=== PATIENT | female | born 1940 | race African-American/Black ===

== ENCOUNTER → 2022-02-12 | Day surgery (SDC) | payer MEDICARE ==
[2022-02-08 09:44] LABS: BASOPHILS % 1.1 % (0.0-1.0); EOSINOPHILS # (AUTO) 0.1 (0.0-0.4); EOSINOPHILS % 2.7 % (0.0-6.0); HEMATOCRIT 34.9 % (34.2-44.1); HEMOGLOBIN 10.9 g/dL (12.0-16.0); LYMPHOCYTES # (AUTO) 0.6 (1.0-3.2); LYMPHOCYTES % 34.6 % (18.0-39.1); MEAN CORPUSCULAR HEMOGLOBIN 31.6 pg (28-32); MEAN CORPUSCULAR HGB CONC 31.2 g/dL (31-35); MEAN CORPUSCULAR VOLUME 101.2 fL (81-99); MONOCYTES # (AUTO) 0.4 (0.2-0.8); MONOCYTES % 21.4 % (4.4-11.3); NEUTROPHILS # (AUTO) 0.7 (2.1-6.9); NEUTROPHILS % 40.2 % (38.7-80.0); PLATELET COUNT 115 x10e3/uL (140-360); RED BLOOD COUNT 3.45 x10e6/uL (3.6-5.1); RED CELL DISTRIBUTION WIDTH 11.8 % (11.7-14.4)
[2022-02-08 10:43] LABS: EOSINOPHILS % (MANUAL) 4 % (0-7); LYMPHOCYTES % (MANUAL) 36 % (19-48); MONOCYTES % (MANUAL) 22 % (3.4-9.0); NEUTROPHILS % (MANUAL) 38 % (40-74)
[2022-02-08 10:47] LABS: PLATELET ESTIMATE SLIGHTLY DECREASED; PLATELET MORPHOLOGY COMMENT NORMAL; RBC MORPHOLOGY COMMENT NORMAL
[~2022-02-12] MED LIST: AMITRIPTYLINE H10 MG PO; CARVEDILOL12.5 MG PO; ELIQUIS5 MG PO; ENTRESTO 24 MG1 EACH PO; FAMOTIDINE20 MG PO; FENTANYL CITRATE/PF 100MCG/2 ML INJ ONE; FLONASE ALLERG9.9 ML INH; HYOSCYAMINE SULFATE 0.5 MG/ML INJ ONE; MAGNESIUM OXID400 MG PO; PROPOFOL IV EMULSION 10 MG/ML 20 ML VIAL ONE
[2022-02-12 12:25] VITALS: BP 144/84
== END | disposition home or self-care (01) ==
LOC: OR 08:16 → EDBD 10:00
PROVIDERS: ATTEND Internal Medicine Gastroenterology
DX: K29.70 Gastritis, unspecified, without bleeding (principal); K31.7 Polyp of stomach and duodenum; D12.2 Benign neoplasm of ascending colon; K57.30 Diverticulosis of large intestine without perforation or abscess without bleeding; K21.9 Gastro-esophageal reflux disease without esophagitis; K59.09 Other constipation; I11.0 Hypertensive heart disease with heart failure; I50.9 Heart failure, unspecified; Z86.010 Personal history of colon polyps; Z01.810 Encounter for preprocedural cardiovascular examination; Z01.812 Encounter for preprocedural laboratory examination; Z20.822 Contact with and (suspected) exposure to COVID-19; Z95.810 Presence of automatic (implantable) cardiac defibrillator; Z86.718 Personal history of other venous thrombosis and embolism
CPT/HCPCS: 0223U; 36415; 43239; 45380; 45385; 85025; C9113; J1980; J2704; J3010; 45378; 45384

== ENCOUNTER → 2022-08-27 | Day surgery (SDC) | payer MEDICARE ==
[2022-08-22 11:21] LABS: BASOPHILS % 0.5 % (0.0-1.0); EOSINOPHILS # (AUTO) 0.1 (0.0-0.4); EOSINOPHILS % 2.7 % (0.0-6.0); HEMATOCRIT 34.1 % (34.2-44.1); HEMOGLOBIN 10.3 g/dL (12.0-16.0); LYMPHOCYTES # (AUTO) 0.8 (1.0-3.2); LYMPHOCYTES % 41.3 % (18.0-39.1); MEAN CORPUSCULAR HEMOGLOBIN 30.6 pg (28-32); MEAN CORPUSCULAR HGB CONC 30.2 g/dL (31-35); MEAN CORPUSCULAR VOLUME 101.2 fL (81-99); MONOCYTES # (AUTO) 0.6 (0.2-0.8); MONOCYTES % 30.4 % (4.4-11.3); NEUTROPHILS # (AUTO) 0.5 (2.1-6.9); NEUTROPHILS % 24.6 % (38.7-80.0); PLATELET COUNT 72 x10e3/uL (140-360); RED BLOOD COUNT 3.37 x10e6/uL (3.6-5.1); RED CELL DISTRIBUTION WIDTH 12.7 % (11.7-14.4)
[2022-08-22 12:59] LABS: EOSINOPHILS % (MANUAL) 3 % (0-7); LYMPHOCYTES % (MANUAL) 46 % (19-48); MONOCYTES % (MANUAL) 15 % (3.4-9.0); MYELOCYTES % (MANUAL) 2 % (0-0); NEUTROPHILS % (MANUAL) 33 % (40-74); PLATELET ESTIMATE MODERATELY DECREASED
[2022-08-22 13:00] LABS: PLATELET MORPHOLOGY COMMENT NORMAL; RBC MORPHOLOGY COMMENT NORMAL
[~2022-08-27] MED LIST changes: +FUROSEMIDE40 MG PO; -HYOSCYAMINE SULFATE 0.5 MG/ML INJ ONE; +LIDOCAINE HCL 2% LOCAL INJ 5 ML SDV VIAL INJ ONE; +PROTONIX20 MG PO
[2022-08-27 15:50] VITALS: BP 122/62
== END | disposition home or self-care (01) ==
LOC: OR 10:14
PROVIDERS: ATTEND Internal Medicine Gastroenterology
DX: K50.90 Crohn's disease, unspecified, without complications (principal); K63.5 Polyp of colon; K29.50 Unspecified chronic gastritis without bleeding; K63.89 Other specified diseases of intestine; K59.00 Constipation, unspecified; K21.9 Gastro-esophageal reflux disease without esophagitis; K76.89 Other specified diseases of liver; E11.9 Type 2 diabetes mellitus without complications; I25.10 Atherosclerotic heart disease of native coronary artery without angina pectoris; I11.0 Hypertensive heart disease with heart failure; I50.9 Heart failure, unspecified; Z88.0 Allergy status to penicillin; Z01.812 Encounter for preprocedural laboratory examination; Z79.02 Long term (current) use of antithrombotics/antiplatelets; Z79.899 Other long term (current) drug therapy; Z95.810 Presence of automatic (implantable) cardiac defibrillator
CPT/HCPCS: 36415; 43239; 45380; 85025; C9113; J2001; J2704; J3010; 45378

== ENCOUNTER 2022-10-15 03:39 | Inpatient (IN) | payer MEDICARE, OTHER ==
[~2022-10-15] VITALS: Ht 152.4 cm; Wt 55.3 kg
[2022-10-15] VITALS (7 sets, daily range): BP systolic 140–160; BP diastolic 75–76
[~2022-10-15 03:39] MED LIST changes: -FENTANYL CITRATE/PF 100MCG/2 ML INJ ONE; -LIDOCAINE HCL 2% LOCAL INJ 5 ML SDV VIAL INJ ONE; -PROPOFOL IV EMULSION 10 MG/ML 20 ML VIAL ONE
[2022-10-15] MEDS ORDERED: SODIUM CHLORIDE 0.9% 1000ML 1,000 ML IV ONE (04:30)
[2022-10-15 04:53] LABS: BASOPHILS % 0.7 % (0.0-1.0); EOSINOPHILS # (AUTO) 0.1 (0.0-0.4); EOSINOPHILS % 4.6 % (0.0-6.0); HEMATOCRIT 36.2 % (34.2-44.1); HEMOGLOBIN 11.7 g/dL (12.0-16.0); LYMPHOCYTES # (AUTO) 0.6 (1.0-3.2); LYMPHOCYTES % 39.9 % (18.0-39.1); MEAN CORPUSCULAR HEMOGLOBIN 30.8 pg (28-32); MEAN CORPUSCULAR HGB CONC 32.3 g/dL (31-35); MEAN CORPUSCULAR VOLUME 95.3 fL (81-99); MONOCYTES # (AUTO) 0.4 (0.2-0.8); MONOCYTES % 25.5 % (4.4-11.3); NEUTROPHILS # (AUTO) 0.4 (2.1-6.9); NEUTROPHILS % 28.6 % (38.7-80.0); PLATELET COUNT 80 x10e3/uL (140-360)
[2022-10-15 05:08] LABS: CLARITY,URINE CLEAR (CLEAR); COLOR,URINE YELLOW (YELLOW); KETONES,URINE NEGATIVE (NEGATIVE); LEUKOCYTE ESTERASE ,URINE 1+ (NEGATIVE); NITRITE,URINE POSITIVE (NEGATIVE); PROTEIN,URINE DIPSTICK NEGATIVE (NEGATIVE); URINE UROBILINOGEN 0.2 mg/dL (0.2 - 1)
[2022-10-15 05:10] LABS: ANION GAP 15.1 mmol/L (8-16); CREATININE, SERUM 1.2 mg/dL (0.57-1.11); POTASSIUM 4.1 mmol/L (3.5-5.1)
[2022-10-15 05:14] LABS: BACTERIA,URINE MANY /HPF; EPITHELIAL CELLS,URINE FEW /LPF; RENAL EPITHELIAL CELLS,URINE RARE; TRANSITIONAL EPI CELLS,URINE FEW; WBC,URINE (MAN) 21-50 /HPF (0-5)
[2022-10-15] MEDS ORDERED: CEFTRIAXONE 1 GM VIAL IV ONE (05:30)
[2022-10-15] MEDS ORDERED: CEFTRIAXONE 1 GM VIAL ONE (05:35)
[2022-10-15] MEDS ORDERED: ONDANSETRON HCL INJ 2MG/ML 2ML 2 MG/ML VIAL IV PRN (05:45)
[2022-10-15] MEDS ORDERED: SODIUM CHLORIDE FLUSH 10 ML SYR INJ PRN (05:45)
[2022-10-15] MEDS ORDERED: PANTOPRAZOLE SO40 MG PO (08:24)
[2022-10-15] MEDS ORDERED: MECLIZINE HCL12.5 MG PO (08:24)
[2022-10-15] MEDS ORDERED: ESIDRIX25 MG PO (08:24)
[2022-10-15] MEDS ORDERED: CARVEDILOL 12.5 MG TAB PO SCH (09:00)
[2022-10-15] MEDS ORDERED: AMITRIPTYLINE HCL 10 MG TAB PO SCH (09:00)
[2022-10-15] MEDS ORDERED: HYDRALAZINE HCL 20 MG/ML VIAL IV PRN (09:00)
[2022-10-15] MEDS ORDERED: APIXABAN 5 MG TABLET PO SCH (09:00)
[2022-10-15] MEDS ORDERED: SODIUM CHLORIDE 0.9% 250ML 250 ML ONE (10:26)
[2022-10-15] MEDS: MECLIZINE HCL 12.5 MG TAB PO SCH ×3 (11:02→20:45)
[2022-10-15] MEDS: PANTOPRAZOLE SOD 40 MG TABEC PO SCH (11:02)
[2022-10-15] MEDS: NIFEDIPINE CR 30 MG TAB PO SCH (11:03)
[2022-10-15] MEDS ORDERED: PHENYLEPH/SHARK OIL/MO/PETROL 30 GM OINT RC PRN (20:45)
[2022-10-15] MEDS: APIXABAN 5 MG TABLET PO SCH (20:46)
[2022-10-15] MEDS: AMITRIPTYLINE HCL 10 MG TAB PO SCH (20:46)
[2022-10-15] MEDS: CARVEDILOL 12.5 MG TAB PO SCH (20:48)
[2022-10-15] MEDS: HYDROXYZINE HCL 25 MG TAB PO PRN (22:52)
[2022-10-16] VITALS (7 sets, daily range): BP systolic 100–151; BP diastolic 64–80
[2022-10-16] MEDS ORDERED: PHE/SHARK LIVER OIL/COCOA BUT 1 EA SUPP RC PRN ×2 (00:45→11:45)
[2022-10-16 06:00] LABS: BASOPHILS % 0.7 % (0.0-1.0); EOSINOPHILS # (AUTO) 0.1 (0.0-0.4); HEMATOCRIT 36.1 % (34.2-44.1); HEMOGLOBIN 11.5 g/dL (12.0-16.0); LYMPHOCYTES # (AUTO) 0.5 (1.0-3.2); LYMPHOCYTES % 35.1 % (18.0-39.1); MEAN CORPUSCULAR HEMOGLOBIN 30.6 pg (28-32); MEAN CORPUSCULAR HGB CONC 31.9 g/dL (31-35); MONOCYTES # (AUTO) 0.3 (0.2-0.8); MONOCYTES % 18.5 % (4.4-11.3); NEUTROPHILS # (AUTO) 0.6 (2.1-6.9); NEUTROPHILS % 41.7 % (38.7-80.0); PLATELET COUNT 97 x10e3/uL (140-360); RED BLOOD COUNT 3.76 x10e6/uL (3.6-5.1); RED CELL DISTRIBUTION WIDTH 11.9 % (11.7-14.4)
[2022-10-16] MEDS: HYDROXYZINE HCL 25 MG TAB PO PRN (06:14)
[2022-10-16 06:30] LABS: ALBUMIN 3.7 g/dL (3.5-5.0); CALCIUM 9.7 mg/dL (8.4-10.2); CREATININE, SERUM 0.83 mg/dL (0.57-1.11)
[2022-10-16 06:55] LABS: CHOL/HDL RATIO 3.3 (3.0-3.6); MAGNESIUM 1.8 MG/DL (1.3-2.1); PHOSPHORUS 3.3 MG/DL (2.3-4.7)
[2022-10-16] MEDS: PANTOPRAZOLE SOD 40 MG TABEC PO SCH ×2 (08:15→09:10)
[2022-10-16] MEDS: MECLIZINE HCL 12.5 MG TAB PO SCH ×3 (09:10→21:24)
[2022-10-16] MEDS: APIXABAN 5 MG TABLET PO SCH ×2 (09:10→21:24)
[2022-10-16] MEDS: CARVEDILOL 12.5 MG TAB PO SCH ×2 (09:11→21:26)
[2022-10-16] MEDS: NIFEDIPINE CR 30 MG TAB PO SCH (09:11)
[2022-10-16 10:25] LABS: LYMPHOCYTES % (MANUAL) 40 % (19-48); MONOCYTES % (MANUAL) 18 % (3.4-9.0); NEUTROPHILS % (MANUAL) 43 % (40-74); PLATELET ESTIMATE MODERATELY DECREASED; PLATELET MORPHOLOGY COMMENT NORMAL; RBC MORPHOLOGY COMMENT NORMAL
[2022-10-16] MEDS ORDERED: FILGRASTIM 300 MCG/ML VIAL SC ONE (18:00)
[2022-10-16 18:15] LABS: BASOPHILS % 0.5 % (0.0-1.0); EOSINOPHILS # (AUTO) 0.1 (0.0-0.4); EOSINOPHILS % 4.1 % (0.0-6.0); HEMATOCRIT 40.6 % (34.2-44.1); HEMOGLOBIN 12.8 g/dL (12.0-16.0); LYMPHOCYTES # (AUTO) 0.6 (1.0-3.2); LYMPHOCYTES % 31.3 % (18.0-39.1); MEAN CORPUSCULAR HEMOGLOBIN 30.8 pg (28-32); MEAN CORPUSCULAR HGB CONC 31.5 g/dL (31-35); MEAN CORPUSCULAR VOLUME 97.6 fL (81-99); MONOCYTES # (AUTO) 0.3 (0.2-0.8); MONOCYTES % 16.4 % (4.4-11.3); NEUTROPHILS # (AUTO) 0.9 (2.1-6.9); NEUTROPHILS % 47.7 % (38.7-80.0); PLATELET COUNT 81 x10e3/uL (140-360); RED BLOOD COUNT 4.16 x10e6/uL (3.6-5.1); RED CELL DISTRIBUTION WIDTH 12.5 % (11.7-14.4)
[2022-10-16] MEDS: AMITRIPTYLINE HCL 10 MG TAB PO SCH (21:25)
[2022-10-16] MEDS: CALCIUM CARBONATE 500 MG CHEWABLE TABS PO PRN (21:27)
[2022-10-16] MEDS: POLYETHYLENE GLYCOL 3350 17 GM PACK PO PRN (21:27)
[2022-10-17] VITALS (7 sets, daily range): BP systolic 96–116; BP diastolic 46–65
[2022-10-17] MEDS: ACETAMINOPHEN 325 MG TAB PO PRN ×2 (00:57→09:45)
[2022-10-17 05:20] LABS: BASOPHILS % 0.3 % (0.0-1.0); EOSINOPHILS # (AUTO) 0.1 (0.0-0.4); EOSINOPHILS % 0.8 % (0.0-6.0); HEMATOCRIT 34.1 % (34.2-44.1); LYMPHOCYTES # (AUTO) 0.7 (1.0-3.2); LYMPHOCYTES % 6.9 % (18.0-39.1); MEAN CORPUSCULAR HGB CONC 32.3 g/dL (31-35); MEAN CORPUSCULAR VOLUME 96.1 fL (81-99); MONOCYTES # (AUTO) 1.1 (0.2-0.8); MONOCYTES % 10.3 % (4.4-11.3); NEUTROPHILS # (AUTO) 8.4 (2.1-6.9); NEUTROPHILS % 79.6 % (38.7-80.0); PLATELET COUNT 62 x10e3/uL (140-360); RED BLOOD COUNT 3.55 x10e6/uL (3.6-5.1); RED CELL DISTRIBUTION WIDTH 12.2 % (11.7-14.4)
[2022-10-17] MEDS: APIXABAN 5 MG TABLET PO SCH ×2 (09:45→22:09)
[2022-10-17] MEDS: MECLIZINE HCL 12.5 MG TAB PO SCH ×3 (09:45→22:09)
[2022-10-17] MEDS: PANTOPRAZOLE SOD 40 MG TABEC PO SCH (09:45)
[2022-10-17] MEDS: CARVEDILOL 12.5 MG TAB PO SCH ×2 (09:46→21:00)
[2022-10-17] MEDS: NIFEDIPINE CR 30 MG TAB PO SCH (10:00)
[2022-10-17] MEDS: POLYETHYLENE GLYCOL 3350 17 GM PACK PO PRN (17:39)
[2022-10-17] MEDS: AMITRIPTYLINE HCL 10 MG TAB PO SCH (22:09)
[2022-10-17] MEDS: CALCIUM CARBONATE 500 MG CHEWABLE TABS PO PRN (22:18)
[2022-10-18] VITALS (7 sets, daily range): BP systolic 103–142; BP diastolic 51–77
[2022-10-18] MEDS: ACETAMINOPHEN 325 MG TAB PO PRN ×2 (01:33→18:27)
[2022-10-18 05:25] LABS: BASOPHILS % 0.2 % (0.0-1.0); EOSINOPHILS # (AUTO) 0.2 (0.0-0.4); EOSINOPHILS % 1.4 % (0.0-6.0); HEMOGLOBIN 10.2 g/dL (12.0-16.0); LYMPHOCYTES # (AUTO) 1.1 (1.0-3.2); LYMPHOCYTES % 9.3 % (18.0-39.1); MEAN CORPUSCULAR HEMOGLOBIN 31.1 pg (28-32); MEAN CORPUSCULAR HGB CONC 32.9 g/dL (31-35); MEAN CORPUSCULAR VOLUME 94.5 fL (81-99); MONOCYTES # (AUTO) 0.9 (0.2-0.8); MONOCYTES % 7.9 % (4.4-11.3); NEUTROPHILS # (AUTO) 9.3 (2.1-6.9); NEUTROPHILS % 80.1 % (38.7-80.0); PLATELET COUNT 64 x10e3/uL (140-360); RED BLOOD COUNT 3.28 x10e6/uL (3.6-5.1); RED CELL DISTRIBUTION WIDTH 12.4 % (11.7-14.4)
[2022-10-18 05:46] LABS: ANION GAP 10.3 mmol/L (8-16); CALCIUM 9.1 mg/dL (8.4-10.2); CREATININE, SERUM 0.85 mg/dL (0.57-1.11); POTASSIUM 4.3 mmol/L (3.5-5.1)
[2022-10-18] MEDS: MECLIZINE HCL 12.5 MG TAB PO SCH ×3 (08:50→20:26)
[2022-10-18] MEDS: CARVEDILOL 12.5 MG TAB PO SCH ×2 (08:50→20:28)
[2022-10-18] MEDS: PANTOPRAZOLE SOD 40 MG TABEC PO SCH (08:50)
[2022-10-18] MEDS: APIXABAN 5 MG TABLET PO SCH ×2 (08:50→20:28)
[2022-10-18] MEDS: NIFEDIPINE CR 30 MG TAB PO SCH (08:51)
[2022-10-18] MEDS: CALCIUM CARBONATE 500 MG CHEWABLE TABS PO PRN ×2 (08:58→20:42)
[2022-10-18] MEDS ORDERED: ONDANSETRON HCL 4 MG ORAL DISINTEGRATING TAB PO PRN (11:30)
[2022-10-18] MEDS: AMITRIPTYLINE HCL 10 MG TAB PO SCH (20:28)
[2022-10-19] VITALS: BP 125/68
[2022-10-19] MEDS: ACETAMINOPHEN 325 MG TAB PO PRN (00:31)
[2022-10-19] MEDS: CALCIUM CARBONATE 500 MG CHEWABLE TABS PO PRN (04:28)
[2022-10-19 05:10] VITALS: BP 109/52
[2022-10-19 08:03] VITALS: BP 124/66
[2022-10-19 09:00] VITALS: BP 124/66
[2022-10-19] MEDS: CARVEDILOL 12.5 MG TAB PO SCH (09:00)
[2022-10-19] MEDS: MECLIZINE HCL 12.5 MG TAB PO SCH (09:04)
[2022-10-19] MEDS: PANTOPRAZOLE SOD 40 MG TABEC PO SCH (09:04)
[2022-10-19] MEDS: NIFEDIPINE CR 30 MG TAB PO SCH (09:04)
[2022-10-19] MEDS: APIXABAN 5 MG TABLET PO SCH (09:04)
[2022-10-19] MEDS: POLYETHYLENE GLYCOL 3350 17 GM PACK PO PRN (09:09)
[2022-10-19 11:39] VITALS: BP 131/72
== END 2022-10-19 12:25 | disposition home health service (06) | DRG 690 ==
LOC: ER 03:43 → ERHOLD 05:40 → MED/SURG 08:00 → OBSVTOIN 10-16 09:18
PROVIDERS: ADMIT Internal Medicine; ATTEND Internal Medicine
DX: N39.0 Urinary tract infection, site not specified (principal); E22.2 Syndrome of inappropriate secretion of antidiuretic hormone; I48.11 Longstanding persistent atrial fibrillation; D46.9 Myelodysplastic syndrome, unspecified; R54 Age-related physical debility
CPT/HCPCS: 36415; 70450; 80048; 80053; 80061; 80329; 81001; 82607; 82784; 83735; 84100; 85025; 87086; 93306; 93880; 99284; G0378; J0690; J0692; J0696; J1442; J3410; J7030; J7050